=== PATIENT | female | born 1950 | race Two or more races ===

== ENCOUNTER 2021-08-21 10:48 | Day surgery (SDC) | payer OTHER ==
[2021-08-21 11:37] VITALS: BMI 36.5
[2021-08-21 13:51] VITALS: BP 130/72; PULSE 50; TEMP 98.1
[2021-08-21] MEDS ORDERED: SIMETHICONE 80 MG TAB.CHEW (FP) PO PRN (13:56)
== END 2021-08-21 14:05 | disposition home or self-care (01) ==
LOC: FASU-ENDO 10:48
PROVIDERS: ATTEND Internal Medicine Gastroenterology
PROC: 0DBN8ZX Excision of Sigmoid Colon, Via Natural or Artificial Opening Endoscopic, Diagnostic (ICD-10-PCS; principal; 2021-08-21 12:23)
DX: Z12.11 Encounter for screening for malignant neoplasm of colon (principal); D12.5 Benign neoplasm of sigmoid colon; K64.0 First degree hemorrhoids
CPT/HCPCS: 88305-TC